=== PATIENT | male | born 1990 | race Caucasian/White ===

== ENCOUNTER 2016-08-14 19:03 | Emergency (ER) | payer SELFPAY | END 2016-08-14 20:23 | disposition home or self-care (01) | LOC: ER 19:03 | DX: K02.9 Dental caries, unspecified (principal); Z88.0 Allergy status to penicillin; Z88.1 Allergy status to other antibiotic agents; Z88.2 Allergy status to sulfonamides; Z88.5 Allergy status to narcotic agent ==

== ENCOUNTER 2016-10-10 19:16 | Emergency (ER) | payer SELFPAY | END 2016-10-10 22:10 | disposition home or self-care (01) | LOC: ER 19:16 | DX: R55 Syncope and collapse (principal); R53.83 Other fatigue; R53.1 Weakness; Z79.899 Other long term (current) drug therapy; Z88.1 Allergy status to other antibiotic agents; Z88.5 Allergy status to narcotic agent; Z88.0 Allergy status to penicillin; Z88.8 Allergy status to other drugs, medicaments and biological substances | CPT/HCPCS: 36415; 96360; 96361 ==